=== PATIENT | female | born 1980 | race Caucasian/White ===

== ENCOUNTER 2018-08-26 11:27 | Emergency (ER) | payer OTHER, SELFPAY ==
[2018-08-26 11:32] VITALS: BP 148/86; PULSE 100; RESP 18; TEMP 37.4; O2SAT 99; BMI 30.5
--- NOTE | 2018-08-26 11:43 | ED.LOWEXIN ---
HPI - Extremity Injury (Lower) <Rosie Mayo PA-C - Last Filed: 08/26/18 16:30> General Chief Complaint: Extremity Injury, Lower Stated Complaint: fell onto both knees onto rocks Time Seen by Provider: 08/26/18 11:31 Source: patient Mode of arrival: ambulatory Limitations: no limitations History of Present Illness HPI Narrative: This 38-year-old female was crouched on an uneven son surface and fell forward 18-24 inches onto both knees. She states the that she was able to get up and walk and her joints do not hurt, but has a big gash in her left knee. She was wearing jeans and jeans did not tear but blood was all over the knee area. She denies any other injury. She states last tetanus vaccine was in 2011. She denies possibility of , has IUD in place Related Data Previous Rx's Medication Instructions Recorded cephalexin [Keflex] 500 mg PO Q8H #21 cap 08/26/18 hydrocodone-acetaminophen [[place]] 1 tab PO Q4-6H PRN #7 tab 08/26/18 Allergies Allergy/AdvReac Type Severity Reaction Status Date / Time meperidine [From Demerol] AdvReac Rash Verified 08/26/18 11:35 Review of Systems <Rosie Mayo PA-C - Last Filed: 08/26/18 16:30> Review of Systems ROS Unobtainable: All systems reviewed & are unremarkable except as noted in HPI and below PFSH <Rosie Mayo PA-C - Last Filed: 08/26/18 16:30> Medical History (Updated 08/26/18 @ 14:19 by Rosie Mayo PA-C) No chronic problems (Suspected) Surgical History (Updated 08/26/18 @ 11:55 by Rosie Mayo PA-C) History of repair of anterior cruciate ligament of right knee (Resolved) Social History (Updated 08/26/18 @ 11:55 by Rosie Mayo PA-C) Smoking Status: Former smoker Social History (Updated 08/26/18 @ 11:55 by Rosie Mayo PA-C) Smoking Status: Former smoker Exam <Rosie Mayo PA-C - Last Filed: 08/26/18 16:30> Narrative Exam Narrative: GENERAL APPEARANCE: Patient sitting comfortably, in no distress. LUNGS: Clear to auscultation bilaterally. HEART: Rate and rhythm regular without murmur, normal S1 and S2, no S3 or S4. DERMATOLOGIC: Right knee there is a 1 cm completely scabbed shallow laceration, left knee there is an open 10 cm linear but irregular laceration through the fat with bone sheath visible but no tendon or ligament visible. Cap 10-15 mm, opens to 2.5 cm with tension on the wound. Depth to 1 cm, irregular. No active bleeding. Ecchymoses appear around the inferior patella MUSCULOSKELETAL: Bilateral knees bearing full weight, full range of motion, no joint line or bony tenderness. NEUROVASCULAR: Bilateral lower extremity strength grossly intact, pedal pulses intact bilaterally, feet are warm and pink Initial Vital Signs Initial Vital Signs: Vital Signs Temperature 99.3 F 08/26/18 11:32 Pulse Rate 100 H 08/26/18 11:32 Respiratory Rate 18 08/26/18 11:32 Blood Pressure 148/86 H 08/26/18 11:32 Pulse Oximetry 99 08/26/18 11:32 <Jeff Sanders DO - Last Filed: 08/26/18 19:15> Initial Vital Signs Initial Vital Signs: Vital Signs Temperature 99.3 F 08/26/18 11:32 Pulse Rate 100 H 08/26/18 11:32 Respiratory Rate 18 08/26/18 11:32 Blood Pressure 148/86 H 08/26/18 11:32 Pulse Oximetry 99 08/26/18 11:32 Procedures <DORIE Flannery Last Filed: 08/26/18 16:30> Laceration Repair Laceration 1: Site: lower extremity Side (If applicable): left Size (cm): 10 Description: linear, irregular and clean Depth: involves muscle layer Local Anesthetic: lidocaine 1%, bupivacaine 0.5% and with epi Amount of anesthesia used (mL): 15 Pre-repair: wound explored, irrigated extensively and deep structures intact Skin layer closed with: nylon Size (cm): 3-0 and 4-0 Number of sutures: 16 Technique: simple, interrupted and other (vertical mattress) Course <DORIE Flannery Last Filed: 08/26/18 16:30> Orders Ordered: ED Orders 08/26/18 11:44 XR knee LT 3V Stat Discontinued Medications Diphtheria/Tetanus/Acell Pertussis (Adacel) 0.5 ml IM .ONCE ONE Stop: 08/26/18 11:45 Last Admin: 08/26/18 11:49 Dose: 0.5 ml Ibuprofen (Advil) 800 mg PO NOW ONE Stop: 08/26/18 11:45 Last Admin: 08/26/18 11:49 Dose: 800 mg Vital Signs - 8 hr 08/26/18 11:32 08/26/18 11:45 08/26/18 14:30 Temperature 99.3 F 99.3 F Pulse Rate 100 H 100 H 87 Respiratory Rate 18 18 16 Blood Pressure 148/86 H 148/86 H 129/86 Pulse Oximetry 99 99 98 <Jeff Sanders DO - Last Filed: 08/26/18 19:15> Orders Ordered: ED Orders 08/26/18 11:44 XR knee LT 3V Stat Discontinued Medications Diphtheria/Tetanus/Acell Pertussis (Adacel) 0.5 ml IM .ONCE ONE Stop: 08/26/18 11:45 Last Admin: 08/26/18 11:49 Dose: 0.5 ml Ibuprofen (Advil) 800 mg PO NOW ONE Stop: 08/26/18 11:45 Last Admin: 08/26/18 11:49 Dose: 800 mg Vital Signs - 8 hr 08/26/18 11:32 08/26/18 11:45 08/26/18 14:30 Temperature 99.3 F 99.3 F Pulse Rate 100 H 100 H 87 Respiratory Rate 18 18 16 Blood Pressure 148/86 H 148/86 H 129/86 Pulse Oximetry 99 99 98 MDM - Extremity Injury (Lower) <Rosie Mayo PA-C - Last Filed: 08/26/18 16:30> Imaging Data knee: Radiologist's impression: 14 Rosie Mayo PA-C Find Patient Imaging Isabel Roper 38 F 1980 ACTIVITY DATE EXAM STATUS AUTHOR 08/26/18 11:[address] [address] XRay Report Signed Patient: Isabel Roper [facility]#: [id number] : 1980Acct:[id number] Age/Sex: 38 / FDate of Service: 08/26/18 Loc: ED Accession Number: [id number] Procedure: XR knee LT 3V Ordering Provider: Rosie Mayo P.A-C PROCEDURE: XR KNEE LT 3V INDICATIONS: fall, deep wound TECHNIQUE: 2 views of the knee were acquired. COMPARISON: None. FINDINGS: Bones: No acute fractures or dislocations. No suspicious bony lesions. Soft tissues: There is a large soft tissue defect along the anterior aspect of the left knee seen a short distance distal to the inferior margin of the patella. No patella yelena or laxity of the quadriceps tendon. No radiopaque soft tissue foreign bodies. No joint effusion. No suspicious soft tissue calcifications. IMPRESSION: Large anterior left knee soft tissue defect/laceration noted a short distance inferior to the inferior pole of the patella without patella yelena or laxity of the quadriceps tendon. The patellar tendon is not well visualized radiographically. No acute fracture or radiopaque soft tissue foreign bodies. Recommend correlation with examination for location of this laceration relative to the patellar tendon. Dictated by: Efrain Vidales M.D. on 08/26/2018 at 12:07 Approved by: Efrain Vidales M.D. on 08/26/2018 at 12:12 Discharge Plan Departure Patient Disposition: Home Clinical Impression: Contusion of left knee, initial encounter, Contusion of right knee, initial encounter Laceration of knee Qualifiers: Encounter type: initial encounter Laterality: left Qualified Code(s): S81.012A - Laceration without foreign body, left knee, initial encounter Left knee sprain Qualifiers: Encounter type: initial encounter Involved ligament of knee: unspecified ligament Qualified Code(s): S83.92XA - Sprain of unspecified site of left knee, initial encounter Discharge Date/Time: 08/26/18 14:45 Interventions: ED Discharge Assessment Last Done: 08/26/18 14:30 Instructions: DI for Laceration Repair, DI for Knee Sprain Activity Restrictions/Additional Instructions: It is okay to shower and rinse quickly, but please keep your the sutures clean and dry. Please apply a little Vaseline or antibiotic ointment if they start to get crusted over. Monitor for any signs of infection such as streaks/warm redness, draining pus, increased pain and swelling or fever. Return to ED or see your PCP right away if any. Otherwise, wear the splint/brace we gave you to avoid over bending the knee. Keep this on even at night to avoid inadvertently breaking the sutures. Please keep a dressing on the knee when you are out or working to protect the skin, but if you are relaxing you can leave the wound open to air, which may help it heal. There was no broken bone seen on your x-ray today but you are having severe pain by this time next week you may need repeat x-rays. I have given you a prescription for a few hydrocodone acetaminophen to take for pain if needed, but remember this can make you sleepy and not to drive. Please take ibuprofen 800 mg every 8 hours for pain and swelling. Prescriptions: New cephalexin [Keflex] 500 mg capsule 500 mg PO Q8H Qty: 21 RF: 0 hydrocodone-acetaminophen [Tilden] 5-325 mg tablet 1 tab PO Q4-6H PRN (Reason: acute knee pain) Qty: 7 RF: 0 Referrals: Estee Dai FNP-C [Non-Staff] - Stand Alone Forms: Work Release Note <Jeff Sanders DO - Last Filed: 08/26/18 19:15> Cosign ED Attending Limaature Attestation: I was immediately available in the department for consultation. Documentation has been reviewed. I agree with assessment and plan.
[2018-08-26 11:45] VITALS: BP 148/86; PULSE 100; RESP 18; TEMP 37.4; O2SAT 99; BMI 30.5
[2018-08-26] MEDS: TET,DIPH,PERTUSS(ACELL),VAC/PF 0.5 ML SYRINGE IM (11:49)
[2018-08-26] MEDS: IBUPROFEN 400 MG TABLET 800 MG PO (11:49)
--- NOTE | 2018-08-26 11:57 | ED_ITS ---
HPI - Extremity Injury (Lower) <Rosie Mayo PA-C - Last Filed: 08/26/18 16:30> General Chief Complaint: Extremity Injury, Lower Stated Complaint: fell onto both knees onto rocks Time Seen by Provider: 08/26/18 11:31 Source: patient Mode of arrival: ambulatory Limitations: no limitations History of Present Illness HPI Narrative: This 38-year-old female was crouched on an uneven son surface and fell forward 18-24 inches onto both knees. She states the that she was able to get up and walk and her joints do not hurt, but has a big gash in her left knee. She was wearing jeans and jeans did not tear but blood was all over the knee area. She denies any other injury. She states last tetanus vaccine was in 2011. She denies possibility of , has IUD in place Related Data Previous Rx's Medication Instructions Recorded cephalexin [Keflex] 500 mg PO Q8H #21 cap 08/26/18 hydrocodone-acetaminophen [[place]] 1 tab PO Q4-6H PRN #7 tab 08/26/18 Allergies Allergy/AdvReac Type Severity Reaction Status Date / Time meperidine [From Demerol] AdvReac Rash Verified 08/26/18 11:35 Review of Systems <Rosie Mayo PA-C - Last Filed: 08/26/18 16:30> Review of Systems ROS Unobtainable: All systems reviewed & are unremarkable except as noted in HPI and below PFSH <Rosie Mayo PA-C - Last Filed: 08/26/18 16:30> Medical History (Updated 08/26/18 @ 14:19 by Rosie Mayo PA-C) No chronic problems (Suspected) Surgical History (Updated 08/26/18 @ 11:55 by Rosie Mayo PA-C) History of repair of anterior cruciate ligament of right knee (Resolved) Social History (Updated 08/26/18 @ 11:55 by Rosie Mayo PA-C) Smoking Status: Former smoker Social History (Updated 08/26/18 @ 11:55 by Rosie Mayo PA-C) Smoking Status: Former smoker Exam <Rosie Mayo PA-C - Last Filed: 08/26/18 16:30> Narrative Exam Narrative: GENERAL APPEARANCE: Patient sitting comfortably, in no distress. LUNGS: Clear to auscultation bilaterally. HEART: Rate and rhythm regular without murmur, normal S1 and S2, no S3 or S4. DERMATOLOGIC: Right knee there is a 1 cm completely scabbed shallow laceration, left knee there is an open 10 cm linear but irregular laceration through the fat with bone sheath visible but no tendon or ligament visible. Cap 10-15 mm, opens to 2.5 cm with tension on the wound. Depth to 1 cm, irregular. No active bleeding. Ecchymoses appear around the inferior patella MUSCULOSKELETAL: Bilateral knees bearing full weight, full range of motion, no joint line or bony tenderness. NEUROVASCULAR: Bilateral lower extremity strength grossly intact, pedal pulses intact bilaterally, feet are warm and pink Initial Vital Signs Initial Vital Signs: Vital Signs Temperature 99.3 F 08/26/18 11:32 Pulse Rate 100 H 08/26/18 11:32 Respiratory Rate 18 08/26/18 11:32 Blood Pressure 148/86 H 08/26/18 11:32 Pulse Oximetry 99 08/26/18 11:32 <Jeff Sanders DO - Last Filed: 08/26/18 19:15> Initial Vital Signs Initial Vital Signs: Vital Signs Temperature 99.3 F 08/26/18 11:32 Pulse Rate 100 H 08/26/18 11:32 Respiratory Rate 18 08/26/18 11:32 Blood Pressure 148/86 H 08/26/18 11:32 Pulse Oximetry 99 08/26/18 11:32 Procedures <DORIE Flannery Last Filed: 08/26/18 16:30> Laceration Repair Laceration 1: Site: lower extremity Side (If applicable): left Size (cm): 10 Description: linear, irregular and clean Depth: involves muscle layer Local Anesthetic: lidocaine 1%, bupivacaine 0.5% and with epi Amount of anesthesia used (mL): 15 Pre-repair: wound explored, irrigated extensively and deep structures intact Skin layer closed with: nylon Size (cm): 3-0 and 4-0 Number of sutures: 16 Technique: simple, interrupted and other (vertical mattress) Course <DORIE Flannery Last Filed: 08/26/18 16:30> Orders Ordered: ED Orders 08/26/18 11:44 XR knee LT 3V Stat Discontinued Medications Diphtheria/Tetanus/Acell Pertussis (Adacel) 0.5 ml IM .ONCE ONE Stop: 08/26/18 11:45 Last Admin: 08/26/18 11:49 Dose: 0.5 ml Ibuprofen (Advil) 800 mg PO NOW ONE Stop: 08/26/18 11:45 Last Admin: 08/26/18 11:49 Dose: 800 mg Vital Signs - 8 hr 08/26/18 11:32 08/26/18 11:45 08/26/18 14:30 Temperature 99.3 F 99.3 F Pulse Rate 100 H 100 H 87 Respiratory Rate 18 18 16 Blood Pressure 148/86 H 148/86 H 129/86 Pulse Oximetry 99 99 98 <Jeff Sanders DO - Last Filed: 08/26/18 19:15> Orders Ordered: ED Orders 08/26/18 11:44 XR knee LT 3V Stat Discontinued Medications Diphtheria/Tetanus/Acell Pertussis (Adacel) 0.5 ml IM .ONCE ONE Stop: 08/26/18 11:45 Last Admin: 08/26/18 11:49 Dose: 0.5 ml Ibuprofen (Advil) 800 mg PO NOW ONE Stop: 08/26/18 11:45 Last Admin: 08/26/18 11:49 Dose: 800 mg Vital Signs - 8 hr 08/26/18 11:32 08/26/18 11:45 08/26/18 14:30 Temperature 99.3 F 99.3 F Pulse Rate 100 H 100 H 87 Respiratory Rate 18 18 16 Blood Pressure 148/86 H 148/86 H 129/86 Pulse Oximetry 99 99 98 MDM - Extremity Injury (Lower) <Rosie Mayo PA-C - Last Filed: 08/26/18 16:30> Imaging Data knee: Radiologist's impression: 14 Rosie Mayo PA-C Find Patient Imaging Isabel Roper 38 F 1980 ACTIVITY DATE EXAM STATUS AUTHOR 08/26/18 11:[address] [address] XRay Report Signed Patient: Isabel Roper [facility]#: [id number] : 1980Acct:[id number] Age/Sex: 38 / FDate of Service: 08/26/18 Loc: ED Accession Number: [id number] Procedure: XR knee LT 3V Ordering Provider: Rosie Mayo P.A-C PROCEDURE: XR KNEE LT 3V INDICATIONS: fall, deep wound TECHNIQUE: 2 views of the knee were acquired. COMPARISON: None. FINDINGS: Bones: No acute fractures or dislocations. No suspicious bony lesions. Soft tissues: There is a large soft tissue defect along the anterior aspect of the left knee seen a short distance distal to the inferior margin of the patella. No patella yelena or laxity of the quadriceps tendon. No radiopaque soft tissue foreign bodies. No joint effusion. No suspicious soft tissue calcifications. IMPRESSION: Large anterior left knee soft tissue defect/laceration noted a short distance inferior to the inferior pole of the patella without patella yelena or laxity of the quadriceps tendon. The patellar tendon is not well visualized radiographically. No acute fracture or radiopaque soft tissue foreign bodies. Recommend correlation with examination for location of this laceration relative to the patellar tendon. Dictated by: Efrain Vidales M.D. on 08/26/2018 at 12:07 Approved by: Efrain Vidales M.D. on 08/26/2018 at 12:12 Discharge Plan Departure Patient Disposition: Home Clinical Impression: Contusion of left knee, initial encounter, Contusion of right knee, initial encounter Laceration of knee Qualifiers: Encounter type: initial encounter Laterality: left Qualified Code(s): S81.012A - Laceration without foreign body, left knee, initial encounter Left knee sprain Qualifiers: Encounter type: initial encounter Involved ligament of knee: unspecified ligament Qualified Code(s): S83.92XA - Sprain of unspecified site of left knee, initial encounter Discharge Date/Time: 08/26/18 14:45 Interventions: ED Discharge Assessment Last Done: 08/26/18 14:30 Instructions: DI for Laceration Repair, DI for Knee Sprain Activity Restrictions/Additional Instructions: It is okay to shower and rinse quickly, but please keep your the sutures clean and dry. Please apply a little Vaseline or antibiotic ointment if they start to get crusted over. Monitor for any signs of infection such as streaks/warm redness, draining pus, increased pain and swelling or fever. Return to ED or see your PCP right away if any. Otherwise, wear the splint/brace we gave you to avoid over bending the knee. Keep this on even at night to avoid inadvertently breaking the sutures. Please keep a dressing on the knee when you are out or working to protect the skin, but if you are relaxing you can leave the wound open to air, which may help it heal. There was no broken bone seen on your x- ray today but you are having severe pain by this time next week you may need repeat x-rays. I have given you a prescription for a few hydrocodone acetaminophen to take for pain if needed, but remember this can make you sleepy and not to drive. Please take ibuprofen 800 mg every 8 hours for pain and swelling. Prescriptions: New cephalexin [Keflex] 500 mg capsule 500 mg PO Q8H Qty: 21 RF: 0 hydrocodone-acetaminophen [[place]] 5-325 mg tablet 1 tab PO Q4-6H PRN (Reason: acute knee pain) Qty: 7 RF: 0 Referrals: Estee Dai FNP-C [Non-Staff] - Stand Alone Forms: Work Release Note <Jeff Sanders DO - Last Filed: 08/26/18 19:15> Cosign ED Attending Limaature Attestation: I was immediately available in the department for consultation. Documentation has been reviewed. I agree with assessment and plan.
[2018-08-26 14:30] VITALS: BP 129/86; PULSE 87; RESP 16; O2SAT 98
== END 2018-08-26 14:45 | disposition home or self-care (01) ==
PROVIDERS: Emergency Provider Internal Medicine
DX: S81.012A Laceration without foreign body, left knee, initial encounter (principal); S83.92XA Sprain of unspecified site of left knee, initial encounter; S80.02XA Contusion of left knee, initial encounter; S80.01XA Contusion of right knee, initial encounter; W18.30XA Fall on same level, unspecified, initial encounter; Z23 Encounter for immunization
CPT/HCPCS: 12034; 29530; 73562; 90471; 99283; 90715